=== PATIENT | male | born 1995 | race Caucasian/White ===

== ENCOUNTER 2016-09-19 05:28 | Emergency (ER) | payer MEDICAID ==
[2016-09-19 05:35] VITALS: TEMP 98.8
[2016-09-19] MEDS ORDERED: NS 1,000 ML IV ONE ×2 (05:40→06:16)
[2016-09-19 05:55] LABS: % IMMATURE GRANULYOCYTES 0.4 % (0.0-1.1); ABSOLUTE IMMATURE GRANULOCYTES 0.07 10^3/uL (0.00-0.10); ADD DIFF? NO; ADD MORPH? NO; ADD SCAN? NO; ATYPICAL LYMPHOCYTE FLAG 10 (0-99); FRAGMENT RBC FLAG 0 (0-99); HEMATOCRIT 46.2 % (40.0-51.0); LEFT SHIFT FLG 0 (0-99); LIPEMIA HEMOLYSIS FLAG 90 (0-99); MEAN CELL HEMOGLOBIN 30.3 pg (27.9-34.1); MEAN CELL HEMOGLOBIN CONCENTR. 34.6 g/dL (32.4-36.7); MEAN CELL VOLUME 87.5 fL (81.5-99.8); MEAN PLATELET VOLUME 9.8 fL (8.7-11.7); PLATELET CLUMPS FLAG 20 (0-99); PLATELET COUNT 264 10^3/uL (150-400); RED BLOOD CELL COUNT 5.28 10^6/uL (4.40-6.38); RED CELL DISTRIBUTION WIDTH 13.2 % (11.5-15.2)
[2016-09-19 06:08] LABS: ALANINE AMINOTRANSFERASE 45 IU/L (21-72); ALBUMIN 4.4 g/dL (3.5-5.0); ALKALINE PHOSPHATASE 68 IU/L (38-126); ANION GAP 11 mEq/L (8-16); ASPARTATE AMINOTRANSFERASE 28 IU/L (17-59); BILIRUBIN,TOTAL 0.7 mg/dL (0.1-1.4); CALCIUM 9.4 mg/dL (8.5-10.4); CARBON DIOXIDE 23 mEq/l (22-31); CHLORIDE 105 mEq/L (97-110); CREATININE 0.8 mg/dL (0.7-1.3); GLOMERULAR FILTRATION RATE > 60; GLUCOSE 105 mg/dL (70-100); POTASSIUM 4.2 mEq/L (3.5-5.2); SODIUM 139 mEq/L (134-144); TOTAL PROTEIN 7.5 g/dL (6.3-8.2)
[2016-09-19] MEDS ORDERED: ONDANSETRON 4MG PREPACK#2 BTL TAKEHOME ONE (07:40)
--- NOTE | 2016-09-19 07:40 | EDPHY ---
H & P Stated Complaint: V and D since 2199 last night Time Seen by Provider: 09/19/16 05:42 HPI/ROS: HPI The patient presents with nausea, vomiting, diarrhea which began last night. He has had multiple episodes of nonbloody nonbilious emesis and several episodes of watery diarrhea. He took an Imodium with some improvement in his diarrhea. The vomiting has been intermittent and has mostly resolved. He presents via ambulance and received Zofran in the field. He has no prior history of similar illness. He is currently staying at the [facility] and is not sure if he has been exposed to anyone who is sick but would not be surprised. He denies any abdominal pain.. REVIEW OF SYSTEMS Constitutional: No fever, no chills. Eyes: No discharge. ENT: No sore throat. Cardiovascular: No chest pain, no palpitations. Respiratory: No cough, no shortness of breath. Gastrointestinal: No abdominal pain, positive for vomiting. Genitourinary: No hematuria. Musculoskeletal: No back pain. Skin: No rashes. Neurological: No headache. PMHx: Healthy, no diabetes, no hypertension Soc Hx: Tobacco use, no alcohol, marijuana, drug use PHYSICAL General Appearance: Alert, no distress Eyes: Pupils equal and round no pallor or injection ENT, Mouth: Mucous membranes moist Respiratory: There are no retractions, lungs are clear to auscultation Cardiovascular: Mild tachycardia with regular rhythm Gastrointestinal: Abdomen is soft and non-tender, no masses, bowel sounds normal Neurological: A&O, moves all extremities Skin: Warm and dry, no rashes Musculoskeletal: Neck is supple non tender Extremities: symmetrical, full range of motion Psychiatric: Patient is oriented X 3, there is no agitation Source: Patient Exam Limitations: No limitations - Personal History Current Tetanus/Diphtheria Vaccine: Unsure Current Tetanus Diphtheria and Acellular Pertussis (TDAP): Unsure - Medical/Surgical History Hx Asthma: No Hx Chronic Respiratory Disease: No Hx Diabetes: No Hx Cardiac Disease: No Hx Renal Disease: No Hx Cirrhosis: No Hx Alcoholism: No Hx HIV/AIDS: No Hx Splenectomy or Spleen Trauma: No Other PMH: appy, lithotripsy, R eye surgery Constitutional: Initial Vital Signs Temperature (C) 37.1 C 09/19/16 05:33 Heart Rate 100 09/19/16 05:33 Respiratory Rate 14 09/19/16 05:33 Blood Pressure 125/70 H 09/19/16 05:33 O2 Sat (%) 95 09/19/16 05:33 O2 Delivery Mode Room Air Allergies/Adverse Reactions: No Known Allergies Allergy (Unverified 09/19/16 05:33) Home Medications: Medication Instructions Recorded Ondansetron Odt [Zofran Odt 4 mg 4 mg PO Q4 PRN #10 tab 09/19/16 (*)] Medical Decision Making Differential Diagnosis: This is a 21-year-old male with no significant past medical history who presents with nausea, vomiting, diarrhea. On exam, he is mildly dehydrated appearing. His abdominal exam is benign. Differential diagnosis includes viral gastroenteritis, toxin mediated enterocolitis, colitis, less likely appendicitis given no abdominal tenderness. In the emergency room labs were checked which revealed a leukocytosis. I feel this is related to stress response from vomiting or underlying gastroenteritis and I doubt serious intra-abdominal infection. Other labs were normal. He received IV fluids with improvement in his symptoms. He will be discharged with Zofran and already has Imodium at his senior care. I have discussed return precautions with him. - Data Points Laboratory Results: Laboratory Results 09/19/16 05:30 09/19/16 05:30 09/19/16 09/19/16 05:30 05:30 WBC 16.94 10^3/uL H 10^3/uL (3.80-9.50) RBC 5.28 10^6/uL 10^6/uL (4.40-6.38) Hgb 16.0 g/dL g/dL (13.7-17.5) Hct 46.2 % % (40.0-51.0) MCV 87.5 fL fL (81.5-99.8) MCH 30.3 pg pg (27.9-34.1) MCHC 34.6 g/dL g/dL (32.4-36.7) RDW 13.2 % % (11.5-15.2) Plt Count 264 10^3/uL 10^3/uL (150-400) MPV 9.8 fL fL (8.7-11.7) Neut % (Auto) 80.6 % H % (39.3-74.2) Lymph % (Auto) 7.7 % L % (15.0-45.0) [place] % (Auto) 10.0 % % (4.5-13.0) Eos % (Auto) 0.9 % % (0.6-7.6) Baso % (Auto) 0.4 % % (0.3-1.7) Nucleat RBC Rel Count 0.0 % % (0.0-0.2) Absolute Neuts (auto) 13.66 10^3/uL H 10^3/uL (1.70-6.50) Absolute Lymphs (auto) 1.30 10^3/uL 10^3/uL (1.00-3.00) Absolute Monos (auto) 1.69 10^3/uL H 10^3/uL (0.30-0.80) Absolute Eos (auto) 0.16 10^3/uL 10^3/uL (0.03-0.40) Absolute Basos (auto) 0.06 10^3/uL 10^3/uL (0.02-0.10) Absolute Nucleated RBC 0.00 10^3/uL 10^3/uL (0-0.01) Immature Gran % 0.4 % % (0.0-1.1) Immature Gran # 0.07 10^3/uL 10^3/uL (0.00-0.10) Sodium 139 mEq/L mEq/L (134-144) Potassium 4.2 mEq/L mEq/L (3.5-5.2) Chloride 105 mEq/L mEq/L (97-110) Carbon Dioxide 23 mEq/l mEq/l (22-31) Anion Gap 11 mEq/L mEq/L (8-16) BUN 19 mg/dL mg/dL (7-23) Creatinine 0.8 mg/dL mg/dL (0.7-1.3) Estimated GFR > 60 Glucose 105 mg/dL H mg/dL (70-100) Calcium 9.4 mg/dL mg/dL (8.5-10.4) Total Bilirubin 0.7 mg/dL mg/dL (0.1-1.4) AST 28 IU/L IU/L (17-59) ALT 45 IU/L IU/L (21-72) Alkaline Phosphatase 68 IU/L IU/L (38-126) Total Protein 7.5 g/dL g/dL (6.3-8.2) Albumin 4.4 g/dL g/dL (3.5-5.0) Lipase 72.0 IU/L IU/L (23-300) Medications Given: Discontinued Medications Sodium Chloride (Ns) 1,000 mls @ 0 mls/hr IV ONCE ONE PRN Reason: Wide Open Stop: 09/19/16 05:41 Last Admin: 09/19/16 05:40 Dose: 1,000 mls Sodium Chloride (Ns) 1,000 mls @ 0 mls/hr IV ONCE ONE PRN Reason: Wide Open Stop: 09/19/16 06:17 Last Admin: 09/19/16 06:28 Dose: 1,000 mls Ondansetron HCl (Zofran Odt 4 Mg Prepack#2) 1 btl TAKEHOME EDNOW ONE Stop: 09/19/16 07:41 Last Admin: 09/19/16 07:57 Dose: 1 btl Departure - Departure Disposition: Home, Routine, Self-Care Clinical Impression: Nausea vomiting and diarrhea Condition: Good Instructions: Ondansetron (By mouth), Acute Nausea and Vomiting (ED) Additional Instructions: Please continue to take the Imodium for your diarrhea. You should return to the emergency room if you develop a high fever, bloody diarrhea, abdominal pain. Referrals: [facility],. [Clinic] - As per Instructions Prescriptions: Ondansetron Odt [Zofran Odt 4 mg (*)] 4 mg PO Q4 PRN #10 tab PRN Reason: Nausea/Vomiting, Can'T Take Po
[2016-09-19 07:55] VITALS: BP 140/80; PULSE 96; RESP 18; O2SAT 95
== END 2016-09-19 08:21 | disposition home or self-care (01) ==
DX: R11.2 Nausea with vomiting, unspecified (principal); R19.7 Diarrhea, unspecified

== ENCOUNTER 2016-10-02 01:39 | Emergency (ER) | payer MEDICAID ==
[2016-10-02 01:50] VITALS: BP 131/88; TEMP 99.3; O2SAT 96
--- NOTE | 2016-10-02 02:33 | EDPHY ---
H & P Stated Complaint: possible drug use, decreased appetite, and difficulty sleeping Time Seen by Provider: 10/02/16 02:08 HPI/ROS: HPI The patient presents with insomnia and anorexia that have been present throughout the course of the day today. He was unable to sleep tonight, and this is what brought him into the emergency room. He ate a cupcake which he thinks had marijuana in it this morning and that is when his symptoms began. They have been constant. He is requesting a sleep aid.. REVIEW OF SYSTEMS Constitutional: No fever, no chills. Eyes: No discharge. ENT: No sore throat. Cardiovascular: No chest pain, no palpitations. Respiratory: No cough, no shortness of breath. Gastrointestinal: No abdominal pain, no vomiting. Genitourinary: No hematuria. Musculoskeletal: No back pain. Skin: No rashes. Neurological: No headache. PMHx: Healthy Soc Hx: Homeless, currently staying with friends PHYSICAL General Appearance: Alert, no distress Eyes: Pupils equal and round no pallor or injection ENT, Mouth: Mucous membranes moist Respiratory: There are no retractions, lungs are clear to auscultation Cardiovascular: Tachycardic rate with regular rhythm Gastrointestinal: Abdomen is soft and non-tender, no masses, bowel sounds normal Neurological: A&O, moves all extremities Skin: Warm and dry, no rashes Musculoskeletal: Neck is supple non tender Extremities: symmetrical, full range of motion Psychiatric: Patient is oriented X 3, there is no agitation Source: Patient - Personal History Current Tetanus/Diphtheria Vaccine: Yes Current Tetanus Diphtheria and Acellular Pertussis (TDAP): Yes Tetanus Vaccine Date: 2015 - Medical/Surgical History Hx Asthma: No Hx Chronic Respiratory Disease: No Hx Diabetes: No Hx Cardiac Disease: No Hx Renal Disease: No Hx Cirrhosis: No Hx Alcoholism: No Hx HIV/AIDS: No Hx Splenectomy or Spleen Trauma: No Other PMH: appy, lithotripsy, R eye surgery - Social History Smoking Status: Current every day smoker Constitutional: Initial Vital Signs Temperature (C) 37.4 C 10/02/16 01:47 Heart Rate 117 H 10/02/16 01:47 Respiratory Rate 18 10/02/16 01:47 Blood Pressure 131/88 H 10/02/16 01:47 O2 Sat (%) 96 10/02/16 01:47 O2 Delivery Mode Room Air Allergies/Adverse Reactions: No Known Allergies Allergy (Unverified 09/19/16 05:33) Medical Decision Making Differential Diagnosis: This is a 21-year-old male who is marginally housed who presents with insomnia and anorexia for the last 1 day. He is concerned he accidentally ate a cupcake that had marijuana in it. On exam, he is well-appearing with a normal exam. Differential diagnosis includes marijuana ingestion, other substance abuse, insomnia. Urine toxicology was sent upon patient's request and was negative. It would be unlikely that he ingested marijuana today with negative toxicology at this point. I have explained this to him. He was observed in the emergency room for about an hour and actually felt much better, ready to sleep and hungry. It is unclear what is causing his symptoms, however they were mild and have resolved spontaneously, thus I doubt any serious cause. He will be discharged home with follow up as needed. I have given him the information for [facility]. - Data Points Laboratory Results: 10/02/16 02:20 Urine Opiates Screen NEGATIVE (NEGATIVE) Urine Barbiturates NEGATIVE (NEGATIVE) Ur Phencyclidine Scrn NEGATIVE (NEGATIVE) Ur Amphetamine Screen NEGATIVE (NEGATIVE) U Benzodiazepines Scrn NEGATIVE (NEGATIVE) Urine Cocaine Screen NEGATIVE (NEGATIVE) U Marijuana (THC) Screen NEGATIVE (NEGATIVE) Departure - Departure Disposition: Home, Routine, Self-Care Clinical Impression: Insomnia Qualifiers: Insomnia type: unspecified Qualified Code(s): G47.00 - Insomnia, unspecified Condition: Good Instructions: Insomnia (ED) Referrals: [facility] [Outside] - As per Instructions
[2016-10-02 03:57] VITALS: PULSE 70; RESP 14
== END 2016-10-02 03:56 | disposition home or self-care (01) ==
DX: G47.00 Insomnia, unspecified (principal); F17.200 Nicotine dependence, unspecified, uncomplicated
CPT/HCPCS: 80305

== ENCOUNTER 2016-10-04 21:56 | Emergency (ER) | payer MEDICAID ==
--- NOTE | 2016-10-04 23:10 | EDPHY ---
H & P Stated Complaint: hearing voices, SI Source: Patient - Personal History Current Tetanus/Diphtheria Vaccine: Yes Current Tetanus Diphtheria and Acellular Pertussis (TDAP): Yes Tetanus Vaccine Date: 2015 - Medical/Surgical History Hx Asthma: No Hx Chronic Respiratory Disease: No Hx Diabetes: No Hx Cardiac Disease: No Hx Renal Disease: No Hx Cirrhosis: No Hx Alcoholism: No Hx HIV/AIDS: No Hx Splenectomy or Spleen Trauma: No Other PMH: appy, lithotripsy, R eye surgery, schizophrenia - Social History Smoking Status: Current every day smoker HPI/ROS: HPI CHIEF COMPLAINT: Suicidal Ideation HISTORY OF PRESENT ILLNESS: This patient very pleasant 21-year-old male significant past medical history for bipolar does not take any daily medications , he is homeless, he tells me that [facility] this [facility] he has no place to go. He is feeling more depressed and suicidal. He tells me that he would like to kill himself. He has no specific plan at this time. He walked in here to the emergency room. Past Medical History: Bipolar disorder Past Surgical History: denies any recent surgical history Social History: Denies daily use of drugs alcohol tobacco products Family History: Noncontributory ROS REVIEW OF SYSTEMS: A comprehensive 10 point review of systems is otherwise negative aside from elements mentioned in the history of present illness. Exam Constitutional triage nursing summary reviewed, vital signs reviewed, awake/ alert. Eyes normal conjunctivae and sclera, EOMI, PERRLA. HENT normal inspection, atraumatic, moist mucus membranes, no epistaxis, neck supple/ no meningismus, no raccoon eyes. Respiratory clear to auscultation bilaterally, normal breath sounds, no respiratory distress, no wheezing. Cardiovascular rate normal, regular rhythm, no murmur, no edema, distal pulses normal. Gastrointestinal soft, non-tender, no rebound, no guarding, normal bowel sounds, no distension, no pulsatile mass. Genitourinary no CVA tenderness. Musculoskeletal no midline vertebral tenderness, full range of motion, no calf swelling, no tenderness of extremities, no meningismus, good pulses, neurovascularly intact. Skin pink, warm, & dry, no rash, skin atraumatic. Neurologic awake, alert and oriented x 3, AAOx3, moves all 4 extremities equally, motor intact, sensory intact, CN II-XII intact, normal cerebellar, normal vision, normal speech. Psychiatric flat affect, suicidal Heme/Lymph/Immune no lymphadenopathy. Differential Diagnosis: Includes but is not limited to in a particular order depression, bipolar disorder, suicidal ideation Medical Decision Making: Plan for this patient he is homeless, he is feeling worsening depression he has a history of bipolar not on any medications and is actively suicidal. He presented to the emergency room by walk-in patient. He will be placed on M1 hold and needs mental health evaluation after medical clearance of blood work. Re-evaluation: 2319: At this time patient has been placed on M1 hold by myself. [id number]: No acute events overnight. Patient is getting evaluation at this time. Placed on M1 hold for suicidal ideation. Possible malingering. Patient signed over at 7:00 a.m. shift change to Dr. Calvin. (Trey Alvarez) Constitutional: Initial Vital Signs Temperature (C) 36.7 C 10/04/16 22:03 Heart Rate 91 10/04/16 22:03 Respiratory Rate 16 10/04/16 22:03 Blood Pressure 124/87 H 10/04/16 22:03 O2 Sat (%) 97 10/04/16 22:03 O2 Delivery Mode Room Air Allergies/Adverse Reactions: No Known Allergies Allergy (Unverified 10/04/16 22:03) Home Medications: Medication Instructions Recorded NK [No Known Home Meds] 10/04/16 Medical Decision Making ED Course/Re-evaluation: I assumed care of the patient at 7 o'clock in the morning pending psychiatric evaluation. Update at 12:00 p.m.. I am informed by Psychiatry that they would like to place the patient in a crisis stabilization unit. The specific placement is pending at this point time. The patient will be turned over to Dr. Krunal Montanez at 3:00 p.m. pending psychiatric placement. (Wu Calvin) Patient remains stable. Patient has been accepted at [facility] which is a crisis stabilization unit. Appropriate paperwork has been filled out (Krunal Montanez) Differential Diagnosis: Bipolar, depression, suicide ideation (Krunal Montanez) - Data Points Laboratory Results: Laboratory Results 10/04/16 23:28 10/04/16 23:28 Departure - Departure Disposition: Other Psych, Not [place] Clinical Impression: Homeless Depression Qualifiers: Depression Type: unspecified Qualified Code(s): F32.9 - Major depressive disorder, single episode, unspecified Condition: Fair Referrals: NONE *PRIMARY CARE P,. [Primary Care Provider] - As per Instructions
[2016-10-04 23:35] LABS: % IMMATURE GRANULYOCYTES 0.4 % (0.0-1.1); ABSOLUTE IMMATURE GRANULOCYTES 0.04 10^3/uL (0.00-0.10); ADD DIFF? NO; ADD MORPH? NO; ADD SCAN? NO; ATYPICAL LYMPHOCYTE FLAG 30 (0-99); FRAGMENT RBC FLAG 0 (0-99); HEMATOCRIT 41.7 % (40.0-51.0); HEMOGLOBIN 14.4 g/dL (13.7-17.5); LEFT SHIFT FLG 0 (0-99); LIPEMIA HEMOLYSIS FLAG 90 (0-99); MEAN CELL HEMOGLOBIN 29.7 pg (27.9-34.1); MEAN CELL HEMOGLOBIN CONCENTR. 34.5 g/dL (32.4-36.7); PLATELET CLUMPS FLAG 0 (0-99); PLATELET COUNT 280 10^3/uL (150-400); RED BLOOD CELL COUNT 4.85 10^6/uL (4.40-6.38); RED CELL DISTRIBUTION WIDTH 12.9 % (11.5-15.2)
[2016-10-04 23:48] LABS: ANION GAP 9 mEq/L (8-16); CALCIUM 9.2 mg/dL (8.5-10.4); CARBON DIOXIDE 23 mEq/l (22-31); CHLORIDE 105 mEq/L (97-110); CREATININE 0.8 mg/dL (0.7-1.3); ETHANOL SERUM < 10 mg/dL (0-10); GLOMERULAR FILTRATION RATE > 60; GLUCOSE 91 mg/dL (70-100); SALICYLATE < 1.0 mg/dL (2.0-20.0); SODIUM 137 mEq/L (134-144)
[2016-10-05 08:01] VITALS: RESP 18
[2016-10-05 17:42] VITALS: BP 129/65; PULSE 84; TEMP 98.4; O2SAT 96
== END 2016-10-05 18:45 ==
DX: F32.9 Major depressive disorder, single episode, unspecified (principal); F17.200 Nicotine dependence, unspecified, uncomplicated; Z59.0 Homelessness
CPT/HCPCS: 80305; G0480